=== PATIENT | female | born 1975 | race Caucasian/White ===

== ENCOUNTER 2016-10-20 21:58 | Emergency (ER) | payer OTHER ==
[2016-10-20 23:44] VITALS: BP 100/56
== END 2016-10-20 23:36 | disposition left against medical advice (07) ==
LOC: ED 21:58
DX: Z53.21 Procedure and treatment not carried out due to patient leaving prior to being seen by health care provider (principal)

== ENCOUNTER 2017-01-20 08:01 | Emergency (ER) | payer OTHER ==
[2017-01-20 09:26] LABS: CALCIUM 8.9 mg/dL (8.5-10.1); CARBON DIOXIDE 27.2 mmol/L (21-32); CHLORIDE SERUM 108 mmol/L (98-107); CREATININE SERUM 0.7 mg/dL (0.6-1.0); GFR1 > 60 mL/min; GLUCOSE SERUM 100 mg/dL (74-106); SODIUM SERUM 143 mmol/L (136-145)
[2017-01-20 09:29] LABS: BASOPHIL % 0.2 % (0-2); PLATELET COUNT 284 x10^3mcL (130-400); RED CELL DISTRIBUTION WIDTH 12.8 % (11.5-14.5)
[2017-01-20 09:34] LABS: ALBUMIN 4.2 g/dL (3.4-5.0); ALKALINE PHOSPHATASE 67 U/L (46-116); ALT/SGPT 22 U/L (14-59); AMYLASE 45 U/L (25-115); AST/SGOT 15 U/L (15-37); BILIRUBIN TOTAL 1.59 mg/dL (0.20-1.00); LIPASE 71 IU/L (73-393); TOTAL PROTEIN, SERUM 7.8 g/dL (6.4-8.2)
[2017-01-20 12:05] VITALS: BP 105/47
== END 2017-01-20 12:20 | disposition home or self-care (01) ==
LOC: ED 08:01
PROVIDERS: Emergency Medicine
DX: R10.33 Periumbilical pain (principal); R11.10 Vomiting, unspecified; R19.7 Diarrhea, unspecified; E86.0 Dehydration
CPT/HCPCS: 83880; 87046; 87046-59; J2405; J3010; J7030; Q0162